=== PATIENT | female | born 1960 | race Caucasian/White ===

== ENCOUNTER 2017-04-22 14:46 | Outpatient (CLI) | payer BC ==
--- NOTE | 2017-04-30 15:06 | MMO ---
BILATERAL DIGITAL SCREENING MAMMOGRAMS: Date: 04/22/2017 HISTORY: A 56-year-old female presents for digital screening mammography. COMPARISON: 03/08/2015, 03/08/2014, and 07/05/2010. FINDINGS: This patient's mammogram was interpreted with the assistance of computer-aided detection. Scattered areas of fibroglandular density are noted bilaterally. Stable, typically benign calcifica tions. No direct or indirect evidence of malignancy. IMPRESSION: BIRADS 2: Benign Finding(s) Continue routine screening. POS: TAYLER
== END 2017-04-22 14:47 | disposition home or self-care (01) ==
LOC: MAMMO 14:46
PROVIDERS: ATTEND Family Medicine
DX: Z12.31 Encounter for screening mammogram for malignant neoplasm of breast (principal)
CPT/HCPCS: 77067; G0202

== ENCOUNTER 2017-10-28 14:39 | Outpatient (CLI) | payer BC ==
--- NOTE | 2017-10-28 15:52 | RAD ---
LUMBAR SPINE FOUR VIEWS: 10/28/17 HISTORY: Back pain. Spondylolisthesis. FINDINGS: there are five lumbar type vertebrae. Pedicles are intact. Vertebral body heights are maintained. Ost eophytosis is present throughout the vertebral bodies and facets. Minimal degenerative spondylolisthe sis at the L4-5 level is present without abnormal translational motion upon flexion or extension. IMPRESSION: Lumbar spondylosis. No acute osseous abnormalities are demonstrated. POS: TAYLER
== END 2017-10-28 14:40 | disposition home or self-care (01) ==
LOC: RAD 14:39
PROVIDERS: ATTEND Nurse Practitioner Family
DX: M47.26 Other spondylosis with radiculopathy, lumbar region (principal); M43.17 Spondylolisthesis, lumbosacral region
CPT/HCPCS: 72100

== ENCOUNTER 2018-04-23 07:40 | Outpatient (CLI) | payer BC | END 2018-04-23 07:41 | disposition home or self-care (01) | LOC: BICMAMMO 07:40 | PROVIDERS: ATTEND Family Medicine | DX: Z12.31 Encounter for screening mammogram for malignant neoplasm of breast (principal) | CPT/HCPCS: 77063; 77067 ==

== ENCOUNTER 2018-09-06 11:34 | Outpatient (CLI) | payer BC | END 2018-09-06 11:35 | disposition home or self-care (01) | LOC: LAB 11:34 | PROVIDERS: ATTEND Physician Assistant | DX: R19.7 Diarrhea, unspecified (principal) | CPT/HCPCS: 83630; 87045; 87046; 87081; 87177; 87324; 87449; 87899 ==

== ENCOUNTER 2019-06-01 11:58 | Outpatient (CLI) | payer BC ==
--- NOTE | 2019-06-01 14:28 | MMO ---
Bilateral MAMMO Bilat Screen [facility]. CLINICAL HISTORY: Patient is 58 years old and is seen for screening. The patient has no family history of breast cancer. The patient has no personal history of cancer. VIEWS: The views performed were: bilateral craniocaudal with tomosynthesis and bilateral mediolateral oblique with tomosynthesis. FILMS COMPARED: The present examination has been compared to prior imaging studies performed at [facility] on 04/23/2018, and at [facility] on 12/26/2003, 03/08/2005 and 05/20/2008. This study has been interpreted with the assistance of computer-aided detection. MAMMOGRAM FINDINGS: There are scattered fibroglandular densities. There are no suspicious masses, suspicious calcifications, or new areas of architectural distortion. IMPRESSION: THERE IS NO MAMMOGRAPHIC EVIDENCE OF MALIGNANCY. A ROUTINE FOLLOW-UP MAMMOGRAM IN 1 YEAR IS RECOMMENDED. THE RESULTS OF THIS EXAM WERE SENT TO THE PATIENT. ACR BI-RADS Category 1 - Negative MAMMOGRAPHY NOTE: 1. A negative mammogram report should not delay a biopsy if a dominant of clinically suspicious mass is present. 2. Approximately 10% to 15% of breast cancers are not detected by mammography. 3. Adenosis and dense breasts may obscure an underlying neoplasm. Reported by: ROBBY MORAES MD Electonically Signed: [id number]
== END 2019-06-01 11:59 | disposition home or self-care (01) ==
LOC: BICMAMMO 11:58
PROVIDERS: ATTEND Family Medicine
DX: Z12.31 Encounter for screening mammogram for malignant neoplasm of breast (principal)
CPT/HCPCS: 77063; 77067

== ENCOUNTER 2020-03-07 08:34 | Day surgery (SDC) | payer BC ==
[2020-03-03 11:43] VITALS: BMI 29.1
[2020-03-07] MEDS ORDERED: Glycopyrrolate 0.2 MG/ML 5 ML SYRINGE ONE (09:40)
[2020-03-07] MEDS ORDERED: Ketorolac Tromethamine 30 MG/ML VIAL ONE (09:40)
[2020-03-07] MEDS ORDERED: Dexamethasone 20 MG/5 ML VIAL ONE (09:40)
[2020-03-07] MEDS ORDERED: PHENYLEPHRINE-NS 100 MCG/ML 10 ML SYRINGE ONE (09:40)
[2020-03-07] MEDS ORDERED: Ondansetron PF 4 MG/2 ML Vial ONE (09:40)
[2020-03-07] MEDS ORDERED: PROPOFOL 200 MG/20 ML VIAL ONE (09:40)
[2020-03-07] MEDS ORDERED: EPHEDRINE 25 MG/5 ML SYRINGE ONE (09:40)
[2020-03-07] MEDS ORDERED: Fentanyl 100 MCG/2 ML VIAL ONE (10:47)
[2020-03-07] MEDS ORDERED: Midazolam HCl 2 mg/2 ml Vial ONE (10:47)
[2020-03-07] MEDS ORDERED: Bacitracin Zinc Ointment 30 gm TUBE ONE (10:49)
[2020-03-07] MEDS ORDERED: Bupivacaine PF 0.5% 30 ML VIAL ONE ×2 (10:54→11:18)
[2020-03-07] MEDS ORDERED: Sodium Chloride 0.9% 10 ML ONE (10:54)
--- NOTE | 2020-03-07 12:15 | RAD ---
Exam: XR Finger(s) Rt Min 2 View HISTORY: Removal of right thumb hardware. COMPARISON: Intraoperative fluoroscopic images right wrist on 05/26/2020 and views right hand on 02/23/2020 FINDINGS/IMPRESSION: Previously noted metallic pin transfixing the proximal aspects of the metacarpal of the thumb and ind ex finger has been removed. 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 Correlation with intraoperative findings is recommended.
--- NOTE | 2020-03-07 16:13 | OP ---
DATE OF PROCEDURE: 03/07/2020 PREOPERATIVE DIAGNOSIS: Right thumb painful deep wire. PROCEDURES PERFORMED: 1. Right thumb deep wire removal under anesthesia, local in combination of propofol. 2. C-arm supervision. TOURNIQUET TIME: None. ESTIMATED BLOOD LOSS: 10 mL. INJECTABLE: 10 mL of 0.5% Marcaine. FINDINGS: After wire removal, stable 1st and 2nd intermetacarpal distance and height. DESCRIPTION OF PROCEDURE: After successful anesthesia listed above, the limb was prepped and draped. We gave injection, waited 5 minutes and then brought the C-arm to the field. Under C-arm guidance, we found the wire. We made a 5 mm incision, carried through skin and subcutaneous tissue, approximately 1 cm deep, we found the wire. We made sure no nerve was around and freed it from all underlying soft tissue, and removed the wire. Afterwards, radiographs were taken, that showed excellent 1st and 2nd intermetacarpal spacing and height. We obtained hemostasis. We closed the wound with one suture of 4-nylon simple, and soft dressing was applied with bacitracin, Adaptic, 4x4, small Ela, and a small 3-inch Bayron wrap. She left the operating room without evidence of anesthetic or operative complication. Job ID: [id number]
== END 2020-03-07 13:20 | disposition home or self-care (01) ==
LOC: SDC 08:34
PROVIDERS: ATTEND Orthopaedic Surgery Hand Surgery
PROC: 0LPX0JZ Removal of Synthetic Substitute from Upper Tendon, Open Approach (ICD-10-PCS; principal; 2020-03-07)
DX: T84.84XA Pain due to internal orthopedic prosthetic devices, implants and grafts, initial encounter (principal); E03.9 Hypothyroidism, unspecified; E78.00 Pure hypercholesterolemia, unspecified; F32.9 Major depressive disorder, single episode, unspecified; J45.909 Unspecified asthma, uncomplicated; K21.9 Gastro-esophageal reflux disease without esophagitis; Z79.899 Other long term (current) drug therapy; Z87.891 Personal history of nicotine dependence
CPT/HCPCS: 76000; J0690; J1100; J1885; J2250; J2405; J2704; J3010; J3490; S0020

== ENCOUNTER 2020-06-19 12:22 | Outpatient (CLI) | payer BC ==
--- NOTE | 2020-06-19 15:28 | MMO ---
Bilateral MAMMO Bilat Screen [facility]. CLINICAL HISTORY: Patient is 59 years old and is seen for screening. The patient has no family history of breast cancer. The patient has no personal history of cancer. VIEWS: The views performed were: bilateral craniocaudal with tomosynthesis and bilateral mediolateral oblique with tomosynthesis. FILMS COMPARED: The present examination has been compared to prior imaging studies performed at [facility] on 04/23/2018 and 06/01/2019, and at [facility] on 03/08/2005 and 05/20/2008. This study has been interpreted with the assistance of computer-aided detection. MAMMOGRAM FINDINGS: There are scattered fibroglandular densities. Benign calcifications are noted bilaterally. There are no suspicious masses, suspicious calcifications, or new areas of architectural distortion. IMPRESSION: THERE IS NO MAMMOGRAPHIC EVIDENCE OF MALIGNANCY. A ROUTINE FOLLOW-UP MAMMOGRAM IN 1 YEAR IS RECOMMENDED. THE RESULTS OF THIS EXAM WERE SENT TO THE PATIENT. ACR BI-RADS Category 2 - Benign finding MAMMOGRAPHY NOTE: 1. A negative mammogram report should not delay a biopsy if a dominant of clinically suspicious mass is present. 2. Approximately 10% to 15% of breast cancers are not detected by mammography. 3. Adenosis and dense breasts may obscure an underlying neoplasm. Reported by: SAM SPEAR MD Electonically Signed: [id number]
== END 2020-06-19 12:23 | disposition home or self-care (01) ==
LOC: BICMAMMO 12:22
PROVIDERS: ATTEND Physician Assistant
DX: Z12.31 Encounter for screening mammogram for malignant neoplasm of breast (principal)
CPT/HCPCS: 77063; 77067

== ENCOUNTER 2021-06-01 10:30 | Outpatient (CLI) | payer BC ==
[2021-06-01 11:41] LABS: #Eosinphils 0.1 10x3/uL (0.0-0.5); #Monocytes 0.4 10x3/uL (0.0-1.1); #Neutrophils 3.4 10x3/uL (1.5-8.4); %Basophils 0.7 % (0.0-2.0); %Eosinophils 1.8 % (0.0-6.0); %Lymphocytes 30.6 % (18.0-47.0); %Monocytes 6.3 % (0.0-10.0); %Neutrophils 60.2 % (40.0-75.0); Hemoglobin 13.1 g/dL (12.0-15.5); Mean Corpuscular HGB CONC 32.9 g/dL (32.0-36.0); Mean Corpuscular Volume 88.2 fl (81.6-98.3); Mean Platelet Volume 10.9 fl (7.4-10.4); Platelet Count 216 10x3/uL (150-450); RBC Distribution Width 12.1 % (11.5-14.5); Red Blood Cell (RBC) Count 4.51 10x6/uL (3.90-5.03); White Blood Cell (WBC) Count 5.7 10x3/uL (3.5-10.5)
[2021-06-01 11:46] LABS: Bilirubin Neg (Negative); Blood, Urine Negative (Negative); Clarity Clear (Clear); Glucose, Urine (Dipstick) Normal (Negative); Ketone, Urine Negative (Negative); Leukocyte 500 (Negative); Nitrite Negative (Negative); Protein, Urine (Dipstick) Negative (Neg-Trace); Urobilinogen Normal mg/dL (Less than 2)
[2021-06-01 23:18] LABS: SARS-CoV-2 PCR by NAA Not Detected (NotDetected)
== END 2021-06-01 10:31 | disposition home or self-care (01) ==
LOC: LABBT 10:30
PROVIDERS: ATTEND Orthopaedic Surgery Hand Surgery
DX: Z01.812 Encounter for preprocedural laboratory examination (principal); M18.12 Unilateral primary osteoarthritis of first carpometacarpal joint, left hand; M19.042 Primary osteoarthritis, left hand; Z20.822 Contact with and (suspected) exposure to COVID-19
CPT/HCPCS: 81003; 85025; U0003; U0005

== ENCOUNTER 2021-06-05 05:58 | Day surgery (SDC) | payer BC ==
[2021-05-30 12:35] VITALS: BMI 29.1
[2021-06-05] MEDS ORDERED: Fentanyl 100 MCG/2 ML VIAL ONE (06:39)
[2021-06-05] MEDS ORDERED: Midazolam HCl 2 mg/2 ml Vial ONE (06:39)
[2021-06-05] MEDS ORDERED: Lidocaine 1% (PF) 30 ML VIAL ONE (06:39)
[2021-06-05] MEDS ORDERED: Bupivacaine PF 0.5% 30 ML VIAL ONE (06:43)
[2021-06-05] MEDS ORDERED: Neomycin-Polymyxin 1 ML AMP ONE (06:43)
[2021-06-05] MEDS ORDERED: Bacitracin Zinc Ointment 30 gm TUBE ONE (06:43)
[2021-06-05] MEDS ORDERED: Ketorolac Tromethamine 30 MG/ML VIAL ONE (06:54)
[2021-06-05] MEDS ORDERED: Lidocaine 1% PF 5 ML VIAL ONE (06:54)
[2021-06-05] MEDS ORDERED: PROPOFOL 200 MG/20 ML VIAL ONE (06:54)
[2021-06-05] MEDS ORDERED: Dexamethasone 20 MG/5 ML VIAL ONE (06:54)
[2021-06-05] MEDS ORDERED: Ondansetron PF 4 MG/2 ML Vial ONE (06:54)
[2021-06-05] MEDS ORDERED: ePHEDrine 50 MG/ML VIAL ONE (06:54)
[2021-06-05] MEDS ORDERED: Bupivacaine HCl 0.5%/Epinephrine 1:200,000/PF 30 ml Vial ONE (06:54)
[2021-06-05] MEDS ORDERED: PHENYLEPHRINE-NS 100 MCG/ML 10 ML SYRINGE ONE (06:54)
[2021-06-05] MEDS ORDERED: Phenylephrine 10 MG/ML VIAL ONE (08:18)
== END 2021-06-05 13:50 | disposition home or self-care (01) ==
LOC: SDC 05:58
PROVIDERS: ATTEND Orthopaedic Surgery Hand Surgery
PROC: 0RGX04Z Fusion of Left Finger Phalangeal Joint with Internal Fixation Device, Open Approach (ICD-10-PCS; principal; 2021-06-05)
PROC: 0RUT07Z Supplement Left Carpometacarpal Joint with Autologous Tissue Substitute, Open Approach (ICD-10-PCS; principal; 2021-06-05)
PROC: 3E0T3BZ Introduction of Anesthetic Agent into Peripheral Nerves and Plexi, Percutaneous Approach (ICD-10-PCS; principal; 2021-06-05)
PROC: 0LU607Z Supplement Left Lower Arm and Wrist Tendon with Autologous Tissue Substitute, Open Approach (ICD-10-PCS; principal; 2021-06-05)
DX: M15.1 Heberden's nodes (with arthropathy) (principal); M18.12 Unilateral primary osteoarthritis of first carpometacarpal joint, left hand; E78.00 Pure hypercholesterolemia, unspecified; K21.9 Gastro-esophageal reflux disease without esophagitis; E03.9 Hypothyroidism, unspecified; Z87.891 Personal history of nicotine dependence; Z79.899 Other long term (current) drug therapy; Z98.890 Other specified postprocedural states
CPT/HCPCS: 76000; C1889; J0690; J1100; J1885; J2001; J2250; J2370; J2405; J2704; J3010; J3490; S0020

== ENCOUNTER 2021-08-29 08:16 | Outpatient (CLI) | payer BC | END 2021-08-29 08:17 | disposition home or self-care (01) | LOC: BICMAMMO 08:16 | PROVIDERS: ATTEND Family Medicine | DX: Z12.31 Encounter for screening mammogram for malignant neoplasm of breast (principal) | CPT/HCPCS: 77063; 77067 ==

== ENCOUNTER 2022-10-04 09:46 | Outpatient (CLI) | payer BC | END 2022-10-04 09:47 | disposition home or self-care (01) | LOC: BICMAMMO 09:46 | PROVIDERS: ATTEND Family Medicine | DX: Z12.31 Encounter for screening mammogram for malignant neoplasm of breast (principal); Z13.820 Encounter for screening for osteoporosis; M85.88 Other specified disorders of bone density and structure, other site; Z78.0 Asymptomatic menopausal state | CPT/HCPCS: 77063; 77067; 77080 ==

== ENCOUNTER 2024-03-31 08:41 | Outpatient (CLI) | payer BC | END 2024-03-31 08:42 | disposition home or self-care (01) | LOC: BICMAMMO 08:41 | PROVIDERS: ATTEND Family Medicine | DX: Z12.31 Encounter for screening mammogram for malignant neoplasm of breast (principal) | CPT/HCPCS: 77067 ==

== ENCOUNTER 2025-02-04 11:05 | Outpatient (CLI) | payer BC ==
[2025-02-04 12:26] LABS: #Basophils 0.04 10x3/uL (0.0-0.2); #Eosinophils 0.10 10x3/uL (0.0-0.7); #Monocytes 0.32 10x3/uL (0.11-0.59); #Neutrophils 3.08 10x3/uL (1.40-6.50); %Basophils 0.7 % (0.0-1.0); %Eosinophils 1.8 % (0.0-10.0); %Lymphocytes 34.5 % (21.0-51.0); %Monocytes 5.9 % (0.0-10.0); %Neutrophils 56.9 % (42.0-75.0); Hematocrit 39.0 % (36.0-47.0); Hemoglobin 13.1 g/dL (12.0-16.0); Mean Corpuscular Hemoglobin 29.7 pg (27.0-31.0); Mean Corpuscular Volume 88.4 fL (78.0-98.0); Platelet Count 198 10x3/uL (130-400); Red Blood Cell (RBC) Count 4.41 mill/uL (4.20-5.40); White Blood Cell (WBC) Count 5.42 10x3/uL (4.8-10.8)
[2025-02-04 12:44] LABS: INR-International Normal Ratio 1.0; Prothrombin Time 13.2 sec (12.0-14.7)
== END 2025-02-04 11:06 | disposition home or self-care (01) ==
LOC: LABBT 11:05
PROVIDERS: ATTEND Orthopaedic Surgery Hand Surgery
DX: Z01.812 Encounter for preprocedural laboratory examination (principal); M19.041 Primary osteoarthritis, right hand
CPT/HCPCS: 85025; 85610; 87081

== ENCOUNTER 2025-02-08 08:18 | Day surgery (SDC) | payer BC ==
[2025-02-04 11:17] VITALS: BMI 31.6
[2025-02-08] MEDS ORDERED: fentaNYL PF 100 MCG/2 ML SYRINGE ONE ×2 (12:15→13:48)
[2025-02-08] MEDS ORDERED: Ondansetron PF 4 MG/2 ML Vial ONE (12:15)
[2025-02-08] MEDS ORDERED: PROPOFOL 20 ML ONE ×2 (12:15→13:46)
[2025-02-08] MEDS ORDERED: Lidocaine 1% PF 5 ML VIAL ONE (12:15)
[2025-02-08] MEDS ORDERED: CEFAZOLIN 2 GM VIAL ONE (12:45)
[2025-02-08] MEDS ORDERED: Bacitracin Zinc Ointment 30 gm TUBE ONE (12:50)
[2025-02-08] MEDS ORDERED: Ropivacaine 2% HCl/PF (20 MG/10 ML VIAL) ONE (13:08)
[2025-02-08] MEDS ORDERED: PHENYLEPHRINE-NS 100 MCG/ML 10 ML SYRINGE ONE (13:08)
[2025-02-08] MEDS ORDERED: Ropivacaine 0.5% HCl/PF (150 MG/30 ML VIAL) ONE (13:36)
== END 2025-02-08 18:40 | disposition home or self-care (01) ==
LOC: SDC 08:18
PROVIDERS: ATTEND Orthopaedic Surgery Hand Surgery
PROC: 0RRW0JZ Replacement of Right Finger Phalangeal Joint with Synthetic Substitute, Open Approach (ICD-10-PCS; principal; 2025-02-08)
PROC: 0RGU0JZ Fusion of Right Metacarpophalangeal Joint with Synthetic Substitute, Open Approach (ICD-10-PCS; principal; 2025-02-08)
DX: M19.041 Primary osteoarthritis, right hand (principal); M19.042 Primary osteoarthritis, left hand; M18.12 Unilateral primary osteoarthritis of first carpometacarpal joint, left hand; M72.0 Palmar fascial fibromatosis [Dupuytren]; T84.84XA Pain due to internal orthopedic prosthetic devices, implants and grafts, initial encounter; E03.9 Hypothyroidism, unspecified; E78.00 Pure hypercholesterolemia, unspecified; F32.A Depression, unspecified; J45.909 Unspecified asthma, uncomplicated; Z98.51 Tubal ligation status; Z87.891 Personal history of nicotine dependence; Z90.49 Acquired absence of other specified parts of digestive tract; Z90.710 Acquired absence of both cervix and uterus; Z88.1 Allergy status to other antibiotic agents; Z79.890 Hormone replacement therapy; Z79.51 Long term (current) use of inhaled steroids; Z79.899 Other long term (current) drug therapy; Y83.1 Surgical operation with implant of artificial internal device as the cause of abnormal reaction of the patient, or of later complication, without mention of misadventure at the time of the procedure
CPT/HCPCS: C1776; J0665; J0702; J1100; J2250; J2405; J2704; J2795; J3010